=== PATIENT | female | born 1970 | race Hispanic/Latino ===

== ENCOUNTER 2021-12-29 14:33 | Inpatient (IN) | payer OTHER ==
[~2021-12-29] VITALS: Ht 167.6 cm; Wt 68.0 kg
[2021-12-29] MEDS ORDERED: ACETAMINOPHEN 500 MG TABLET PO ONE (15:30)
[2021-12-29] MEDS ORDERED: NIFEDIPINE 10 MG CAP PO ONE (15:30)
[2021-12-29 16:08] LABS: BASOPHILS % (AUTO) 0.5 % (0.0-5.0); EOSINOPHILS % (AUTO) 1.4 % (0.0-8.0); HEMATOCRIT 29.6 % (36-48); LYMPHOCYTES % (AUTO) 13.8 % (21.0-51.0); MEAN CORPUSCULAR HEMOGLOBIN 29.2 pg (27.0-33.0); MEAN CORPUSCULAR HGB CONC 32.1 g/dL (32.0-36.0); MEAN CORPUSCULAR VOLUME 91.1 fL (79-99); MONOCYTES % (AUTO) 10.2 % (3.0-13.0); NEUTROPHILS % (AUTO) 73.9 % (40.0-77.0); PLATELET COUNT (AUTO) 278 K/uL (130-400); RED BLOOD CELL COUNT(AUTO) 3.25 MIL/uL (4.00-5.50); RED CELL DISTRIBUTION WIDTH 15.8 % (11.0-15.5); WHITE BLOOD COUNT (AUTO) 6.6 K/uL (4.8-10.8)
[2021-12-29 16:21] LABS: INR 0.94 (0.85-1.15); PROTHROMBIN TIME 10.3 SEC (9.6-11.6)
[2021-12-29 16:23] LABS: CREATININE 0.6 mg/dL (0.5-1.5); POTASSIUM 3.3 mmol/L (3.5-5.1)
[2021-12-29 16:30] LABS: ALBUMIN 2.6 g/dL (3.5-5.0); TOTAL PROTEIN, SERUM 5.9 g/dL (6.0-8.3)
[2021-12-29] MEDS ORDERED: ACETAMINOPHEN 325 MG TAB PO PRN (16:30)
[2021-12-29] MEDS ORDERED: ONDANSETRON 4MG INJ IV PRN (16:30)
[2021-12-29] MEDS ORDERED: POTASSIUM BICARB/CIT AC 25 MEQ TABLET.EFF PO ONE (16:30)
[2021-12-29 16:47] LABS: HEMOGLOBIN A1C 5.6 % (4.0-6.0)
[2021-12-29 17:02] LABS: MAGNESIUM 1.5 mg/dL (1.80-2.40); PHOSPHORUS 3.1 mg/dL (2.5-4.9)
[2021-12-29] MEDS ORDERED: FISH1CAP50 PO (17:40)
[2021-12-29] MEDS ORDERED: OLAN10TA73 PO (17:41)
[2021-12-29] MEDS ORDERED: CHOL100053 PO (17:43)
[2021-12-29] MEDS ORDERED: [UNRECOGNIZED DRUG - CODE] PO (17:47)
[2021-12-29] MEDS ORDERED: ACET325T51 PO (17:51)
[2021-12-29] MEDS ORDERED: QUET100T34 PO (18:02)
[2021-12-29] MEDS ORDERED: MAAL30 PO (18:02)
[2021-12-29] MEDS ORDERED: ONDA-104 PO (18:02)
[2021-12-29] MEDS ORDERED: LOPE2CAP PO (18:06)
[2021-12-29] MEDS ORDERED: LORA-192 PO (18:06)
[2021-12-29] MEDS: 0.9%NACL 1000ML 1,000 ML IV SCH (18:24)
[2021-12-29] MEDS: BISACODYL 5 MG TABLET.DR PO SCH (19:52)
[2021-12-29] MEDS: METOPROLOL TARTRATE 25 MG TAB PO SCH (19:52)
[2021-12-29 20:36] LABS: APPEARANCE,URINE CLEAR (CLEAR); BILIRUBIN,URINE NEGATIVE (NEGATIVE); COLOR,URINE YELLOW (YELLOW); GLUCOSE, URINE (UA) NEGATIVE (NEGATIVE); KETONES,URINE NEGATIVE (NEGATIVE); LEUKOCYTE ESTERASE ,URINE NEGATIVE (NEGATIVE); NITRATE,URINE NEGATIVE (NEGATIVE); OCCULT BLOOD,URINE NEGATIVE (NEGATIVE); PROTEIN,URINE TRACE mg/dL (NEGATIVE); UROBILINOGEN,URINE 0.2 mg/dL (0.2-1.0)
[2021-12-29 20:54] LABS: BACTERIA,URINE Rare /HPF (None Seen); MUCUS,URINE Few LPF (None Seen); SQUAMOUS EPITHELIAL CELL,UR Few /HPF (0-2)
[2021-12-29] MEDS: HYDROMORPHONE 0.5 MG SYG (0.5MG/0.5ML) IVP PRN (22:55)
[2021-12-30] VITALS (7 sets, daily range): BP systolic 117–156; BP diastolic 88–99
[2021-12-30] MEDS: HYDROMORPHONE 1 MG INJ IVP PRN ×2 (01:09→21:01)
[2021-12-30] MEDS ORDERED: LORAZEPAM 2 MG/ML 1 ML VIAL IVP ONE (01:30)
[2021-12-30] MEDS: 0.9%NACL 1000ML 1,000 ML IV SCH (02:30)
[2021-12-30 06:35] LABS: BASOPHILS % (AUTO) 0.6 % (0.0-5.0); EOSINOPHILS % (AUTO) 3.3 % (0.0-8.0); HEMATOCRIT 28.2 % (36-48); LYMPHOCYTES % (AUTO) 32.2 % (21.0-51.0); MEAN CORPUSCULAR HEMOGLOBIN 28.9 pg (27.0-33.0); MEAN CORPUSCULAR HGB CONC 31.9 g/dL (32.0-36.0); MEAN CORPUSCULAR VOLUME 90.7 fL (79-99); MONOCYTES % (AUTO) 11.1 % (3.0-13.0); NEUTROPHILS % (AUTO) 52.6 % (40.0-77.0); PLATELET COUNT (AUTO) 246 K/uL (130-400); RED BLOOD CELL COUNT(AUTO) 3.11 MIL/uL (4.00-5.50); RED CELL DISTRIBUTION WIDTH 15.9 % (11.0-15.5); WHITE BLOOD COUNT (AUTO) 4.9 K/uL (4.8-10.8)
[2021-12-30 06:43] LABS: CREATININE 0.5 mg/dL (0.5-1.5); POTASSIUM 3.3 mmol/L (3.5-5.1)
[2021-12-30] MEDS ORDERED: POTASSIUM CHLORIDE 10% ELIXIR 20 MEQ/15 ML UDCUP PO PRN (08:30)
[2021-12-30] MEDS ORDERED: LIDOCAINE HCL-MPF 1% 2ML VIAL IV PRN (08:30)
[2021-12-30] MEDS ORDERED: POTASSIUM CHLORIDE 20MEQ/100ML 100 ML IV PRN (08:30)
[2021-12-30] MEDS: HYDROMORPHONE 0.5 MG SYG (0.5MG/0.5ML) IM PRN ×2 (10:20→15:10)
[2021-12-30] MEDS: METOPROLOL TARTRATE 25 MG TAB PO SCH (10:21)
[2021-12-30] MEDS: BISACODYL 5 MG TABLET.DR PO SCH ×2 (10:21→21:00)
[2021-12-30] MEDS: FAMOTIDINE 20MG TAB PO SCH ×2 (10:21→21:00)
[2021-12-30] MEDS: QUETIAPINE FUMARATE 100 MG TAB PO SCH ×3 (10:21→21:00)
[2021-12-30] MEDS: KCL 20 MEQ ERTAB PO PRN ×2 (15:07→17:46)
[2021-12-30] MEDS: MAGNESIUM 2GM PREMIX 50ML 50 ML IV PRN (15:08)
[2021-12-30] MEDS ORDERED: LORAZEPAM 2 MG/ML 1 ML VIAL IVP PRN (16:00)
[2021-12-30] MEDS: OLANZAPINE 5 MG TAB PO SCH (16:31)
[2021-12-30] MEDS: METOPROLOL TARTRATE 50 MG TAB PO SCH (21:00)
[2021-12-30] MEDS ORDERED: ALPRAZOLAM 0.5 MG TABLET PO SCH (22:00)
[2021-12-31] MEDS: KCL 20 MEQ ERTAB PO PRN (00:18)
[2021-12-31] MEDS: HYDROMORPHONE 0.5 MG SYG (0.5MG/0.5ML) IM PRN ×4 (00:18→21:48)
[2021-12-31] MEDS: HYDROMORPHONE 1 MG INJ IVP PRN (04:33)
[2021-12-31 04:47] VITALS: BP 118/84
[2021-12-31 05:06] LABS: BASOPHILS % (AUTO) 0.5 % (0.0-5.0); EOSINOPHILS % (AUTO) 3.9 % (0.0-8.0); HEMATOCRIT 26.6 % (36-48); LYMPHOCYTES % (AUTO) 29.6 % (21.0-51.0); MEAN CORPUSCULAR HEMOGLOBIN 28.9 pg (27.0-33.0); MEAN CORPUSCULAR HGB CONC 31.6 g/dL (32.0-36.0); MEAN CORPUSCULAR VOLUME 91.4 fL (79-99); MONOCYTES % (AUTO) 11.8 % (3.0-13.0); PLATELET COUNT (AUTO) 241 K/uL (130-400); RED BLOOD CELL COUNT(AUTO) 2.91 MIL/uL (4.00-5.50); RED CELL DISTRIBUTION WIDTH 15.9 % (11.0-15.5); WHITE BLOOD COUNT (AUTO) 4.1 K/uL (4.8-10.8)
[2021-12-31 05:43] LABS: % IRON SATURATION 7.6 % (22-44)
[2021-12-31 05:45] LABS: CREATININE 0.6 mg/dL (0.5-1.5); MAGNESIUM 1.7 mg/dL (1.80-2.40); POTASSIUM 4.8 mmol/L (3.5-5.1); THYROID STIMULATING HORMONE 0.89 uIU/mL (0.36-3.74)
[2021-12-31] MEDS: MAGNESIUM 2GM PREMIX 50ML 50 ML IV PRN (06:00)
[2021-12-31 08:00] VITALS: BP 125/77
[2021-12-31] MEDS: BISACODYL 5 MG TABLET.DR PO SCH ×2 (08:00→21:00)
[2021-12-31] MEDS: METOPROLOL TARTRATE 50 MG TAB PO SCH ×2 (09:14→21:31)
[2021-12-31] MEDS: FAMOTIDINE 20MG TAB PO SCH ×2 (09:14→21:31)
[2021-12-31] MEDS: QUETIAPINE FUMARATE 100 MG TAB PO SCH ×3 (09:14→21:31)
[2021-12-31 12:00] VITALS: BP 151/90
[2021-12-31] MEDS ORDERED: DiphenhydrAMINE HCL 50 MG/ML VIAL ONE (15:52)
[2021-12-31] MEDS ORDERED: HALOPERIDOL INJ 5 MG/ML VIAL ONE (15:52)
[2021-12-31 16:00] VITALS: BP 115/75
[2021-12-31] MEDS: OLANZAPINE 5 MG TAB PO SCH (16:31)
[2021-12-31] MEDS ORDERED: HALOPERIDOL INJ 5 MG/ML VIAL IM ONE (17:00)
[2021-12-31] MEDS ORDERED: DiphenhydrAMINE HCL 50 MG/ML VIAL IV ONE (17:00)
[2021-12-31 20:00] VITALS: BP 124/68
[2022-01-01] VITALS (7 sets, daily range): BP systolic 107–149; BP diastolic 68–88
[2022-01-01 05:10] LABS: EOSINOPHILS % (AUTO) 4.4 % (0.0-8.0); HEMATOCRIT 28.4 % (36-48); LYMPHOCYTES % (AUTO) 30.2 % (21.0-51.0); MEAN CORPUSCULAR VOLUME 90.4 fL (79-99); MONOCYTES % (AUTO) 12.4 % (3.0-13.0); PLATELET COUNT (AUTO) 278 K/uL (130-400); RED BLOOD CELL COUNT(AUTO) 3.14 MIL/uL (4.00-5.50); RED CELL DISTRIBUTION WIDTH 15.6 % (11.0-15.5); WHITE BLOOD COUNT (AUTO) 3.9 K/uL (4.8-10.8)
[2022-01-01 05:30] LABS: CREATININE 0.7 mg/dL (0.5-1.5); POTASSIUM 4.3 mmol/L (3.5-5.1)
[2022-01-01] MEDS: HYDROMORPHONE 0.5 MG SYG (0.5MG/0.5ML) IVP PRN ×2 (05:51→19:49)
[2022-01-01] MEDS: BISACODYL 5 MG TABLET.DR PO SCH ×2 (07:21→22:10)
[2022-01-01 10:33] LABS: ALBUMIN 2.6 g/dL (3.5-5.0); TOTAL PROTEIN, SERUM 6.1 g/dL (6.0-8.3)
[2022-01-01] MEDS: FAMOTIDINE 20MG TAB PO SCH ×2 (12:23→22:10)
[2022-01-01] MEDS: METOPROLOL TARTRATE 50 MG TAB PO SCH ×2 (12:23→22:10)
[2022-01-01] MEDS: QUETIAPINE FUMARATE 100 MG TAB PO SCH ×3 (12:23→22:09)
[2022-01-01] MEDS: OLANZAPINE 5 MG TAB PO SCH (16:50)
[2022-01-01] MEDS: CLONAZEPAM 2 MG TABLET PO PRN (16:50)
[2022-01-01] MEDS: ACETAMINOPHEN 325 MG TAB PO PRN (23:40)
[2022-01-02 04:00] VITALS: BP_SYST 103; BP_SYST 129; BP_DIAS 68; BP_DIAS 80
[2022-01-02 05:19] LABS: HEMATOCRIT 29.4 % (36-48); MEAN CORPUSCULAR HGB CONC 32.3 g/dL (32.0-36.0); MEAN CORPUSCULAR VOLUME 89.6 fL (79-99); RED BLOOD CELL COUNT(AUTO) 3.28 MIL/uL (4.00-5.50); RED CELL DISTRIBUTION WIDTH 15.3 % (11.0-15.5); WHITE BLOOD COUNT (AUTO) 4.6 K/uL (4.8-10.8)
[2022-01-02 05:32] LABS: CREATININE 0.7 mg/dL (0.5-1.5); POTASSIUM 4.1 mmol/L (3.5-5.1)
[2022-01-02] MEDS: QUETIAPINE FUMARATE 100 MG TAB PO SCH ×3 (08:50→21:02)
[2022-01-02] MEDS: BISACODYL 5 MG TABLET.DR PO SCH ×2 (08:50→21:02)
[2022-01-02] MEDS: METOPROLOL TARTRATE 50 MG TAB PO SCH ×2 (08:50→21:02)
[2022-01-02] MEDS: FAMOTIDINE 20MG TAB PO SCH ×2 (08:50→21:02)
[2022-01-02 08:53] VITALS: BP 126/79
[2022-01-02] MEDS: HYDROMORPHONE 0.5 MG SYG (0.5MG/0.5ML) IVP PRN ×2 (08:55→14:34)
[2022-01-02 12:23] VITALS: BP 112/77
[2022-01-02 17:26] VITALS: BP 99/69
[2022-01-02] MEDS: OLANZAPINE 5 MG TAB PO SCH (17:48)
[2022-01-02 19:38] VITALS: BP 102/65
[2022-01-02] MEDS: CLONAZEPAM 2 MG TABLET PO PRN (21:02)
[2022-01-02] MEDS: HYDROMORPHONE 0.5 MG SYG (0.5MG/0.5ML) IM PRN (21:06)
[2022-01-03] MEDS: HYDROMORPHONE 0.5 MG SYG (0.5MG/0.5ML) IM PRN (00:52)
[2022-01-03 03:59] VITALS: BP 100/65
[2022-01-03 07:05] VITALS: BP 103/78
[2022-01-03] MEDS: METOPROLOL TARTRATE 50 MG TAB PO SCH ×2 (08:29→20:28)
[2022-01-03] MEDS: HYDROMORPHONE 0.5 MG SYG (0.5MG/0.5ML) IVP PRN ×2 (08:29→14:33)
[2022-01-03] MEDS: OLANZAPINE 5 MG TAB PO SCH ×2 (08:29→12:06)
[2022-01-03] MEDS: BISACODYL 5 MG TABLET.DR PO SCH ×2 (08:36→20:28)
[2022-01-03] MEDS: FAMOTIDINE 20MG TAB PO SCH ×2 (08:37→20:28)
[2022-01-03] MEDS ORDERED: IRON SUCROSE COMPLEX 500 MG in 0.9% NACL 250ML 250 ML IV SCH (11:30)
[2022-01-03 12:02] VITALS: BP 118/76
[2022-01-03] MEDS: CLONAZEPAM 2 MG TABLET PO PRN ×2 (12:06→20:28)
[2022-01-03] MEDS: EPOETIN ALFA-EPBX (NON-ESRD) 10,000 UNIT/ML VIAL SQ SCH (12:33)
[2022-01-03 16:08] VITALS: BP 120/82
[2022-01-03 20:00] VITALS: BP 109/69
[2022-01-03] MEDS: QUETIAPINE FUMARATE 100 MG TAB PO SCH (20:28)
[2022-01-03] MEDS: HYDROMORPHONE 1 MG INJ IVP PRN (21:26)
[2022-01-04] VITALS (27 sets, daily range): BP systolic 106–150; BP diastolic 62–97
[2022-01-04] MEDS: OLANZAPINE 5 MG TAB PO SCH ×2 (08:35→12:00)
[2022-01-04] MEDS: BISACODYL 5 MG TABLET.DR PO SCH ×2 (08:36→20:27)
[2022-01-04] MEDS: METOPROLOL TARTRATE 50 MG TAB PO SCH ×2 (08:36→20:27)
[2022-01-04] MEDS: FAMOTIDINE 20MG TAB PO SCH ×2 (08:36→20:27)
[2022-01-04] MEDS: HYDROMORPHONE 1 MG INJ IVP PRN ×2 (08:39→18:57)
[2022-01-04 08:45] LABS: BASOPHILS % (AUTO) 0.4 % (0.0-5.0); EOSINOPHILS % (AUTO) 4.2 % (0.0-8.0); HEMATOCRIT 30.2 % (36-48); LYMPHOCYTES % (AUTO) 20.1 % (21.0-51.0); MEAN CORPUSCULAR HEMOGLOBIN 29.4 pg (27.0-33.0); MEAN CORPUSCULAR HGB CONC 32.8 g/dL (32.0-36.0); MEAN CORPUSCULAR VOLUME 89.6 fL (79-99); MONOCYTES % (AUTO) 12.1 % (3.0-13.0); NEUTROPHILS % (AUTO) 62.8 % (40.0-77.0); PLATELET COUNT (AUTO) 263 K/uL (130-400); RED BLOOD CELL COUNT(AUTO) 3.37 MIL/uL (4.00-5.50); RED CELL DISTRIBUTION WIDTH 15.2 % (11.0-15.5); WHITE BLOOD COUNT (AUTO) 4.7 K/uL (4.8-10.8)
[2022-01-04 09:18] LABS: ALBUMIN 2.7 g/dL (3.5-5.0); CREATININE 0.7 mg/dL (0.5-1.5); POTASSIUM 3.9 mmol/L (3.5-5.1); TOTAL PROTEIN, SERUM 6.2 g/dL (6.0-8.3)
[2022-01-04] MEDS: EPOETIN ALFA-EPBX (NON-ESRD) 10,000 UNIT/ML VIAL SQ SCH (11:30)
[2022-01-04] MEDS ORDERED: ROCURONIUM 10MG/1ML SYR 10 MG/ML ML ONE (13:10)
[2022-01-04] MEDS ORDERED: GLYCOPYRROLATE 1 MG/5 ML SYRINGE ONE (13:10)
[2022-01-04] MEDS ORDERED: MIDAZOLAM HCL 1 MG/ML 2ML VIAL ONE (13:10)
[2022-01-04] MEDS ORDERED: PROPOFOL 10 MG/ML 20ML VIAL IV ONE (13:10)
[2022-01-04] MEDS ORDERED: FENTANYL CITRATE PF 50 MCG/1 ML 2ML VIAL ONE (13:11)
[2022-01-04] MEDS ORDERED: FAMOTIDINE 20MG VIAL IV ONE (13:57)
[2022-01-04] MEDS ORDERED: ONDANSETRON 4MG INJ ONE (14:04)
[2022-01-04] MEDS ORDERED: NEOSTIGMINE 5MG/5ML SYR IV ONE (15:06)
[2022-01-04] MEDS ORDERED: HYDROMORPHONE 1 MG INJ ONE (15:36)
[2022-01-04] MEDS: QUETIAPINE FUMARATE 100 MG TAB PO SCH (20:27)
[2022-01-04] MEDS: CLONAZEPAM 2 MG TABLET PO PRN (20:30)
[2022-01-05] MEDS: HYDROMORPHONE 0.5 MG SYG (0.5MG/0.5ML) IVP PRN ×3 (02:14→08:48)
[2022-01-05 04:00] VITALS: BP 118/68
[2022-01-05 05:55] LABS: BASOPHILS % (AUTO) 0.4 % (0.0-5.0); EOSINOPHILS % (AUTO) 0.7 % (0.0-8.0); HEMATOCRIT 26.8 % (36-48); LYMPHOCYTES % (AUTO) 10.9 % (21.0-51.0); MEAN CORPUSCULAR HEMOGLOBIN 29.2 pg (27.0-33.0); MEAN CORPUSCULAR HGB CONC 31.7 g/dL (32.0-36.0); MEAN CORPUSCULAR VOLUME 92.1 fL (79-99); MONOCYTES % (AUTO) 12.5 % (3.0-13.0); NEUTROPHILS % (AUTO) 75.1 % (40.0-77.0); PLATELET COUNT (AUTO) 265 K/uL (130-400); RED BLOOD CELL COUNT(AUTO) 2.91 MIL/uL (4.00-5.50); RED CELL DISTRIBUTION WIDTH 15.5 % (11.0-15.5); WHITE BLOOD COUNT (AUTO) 7.1 K/uL (4.8-10.8)
[2022-01-05 06:26] LABS: ALBUMIN 2.6 g/dL (3.5-5.0); CREATININE 0.7 mg/dL (0.5-1.5); POTASSIUM 3.8 mmol/L (3.5-5.1); TOTAL PROTEIN, SERUM 5.9 g/dL (6.0-8.3)
[2022-01-05] MEDS ORDERED: CEFAZOLIN SODIUM 1 GM VIAL ONE (06:39)
[2022-01-05] MEDS: CEFAZOLIN SODIUM 1 GM VIAL IVP SCH ×3 (06:46→22:11)
[2022-01-05 08:00] VITALS: BP 111/79
[2022-01-05] MEDS: METOPROLOL TARTRATE 50 MG TAB PO SCH ×2 (08:24→20:35)
[2022-01-05] MEDS: OLANZAPINE 5 MG TAB PO SCH ×2 (08:24→14:30)
[2022-01-05] MEDS: FAMOTIDINE 20MG TAB PO SCH ×2 (08:24→20:35)
[2022-01-05] MEDS: BISACODYL 5 MG TABLET.DR PO SCH ×2 (08:24→20:35)
[2022-01-05] MEDS: CLONAZEPAM 2 MG TABLET PO PRN ×2 (08:25→20:35)
[2022-01-05] MEDS: EPOETIN ALFA-EPBX (NON-ESRD) 10,000 UNIT/ML VIAL SQ SCH (11:30)
[2022-01-05 12:00] VITALS: BP 127/81
[2022-01-05 16:00] VITALS: BP 125/82
[2022-01-05 20:00] VITALS: BP 123/82
[2022-01-05] MEDS: QUETIAPINE FUMARATE 100 MG TAB PO SCH (20:35)
[2022-01-06] MEDS ORDERED: 0.9% NACL 500ML IV.SOLN 500 ML IV SCH ×2
[2022-01-06 04:00] VITALS: BP 118/77
[2022-01-06 04:34] LABS: BASOPHILS % (AUTO) 0.3 % (0.0-5.0); EOSINOPHILS % (AUTO) 0.8 % (0.0-8.0); HEMATOCRIT 24.5 % (36-48); LYMPHOCYTES % (AUTO) 18.3 % (21.0-51.0); MEAN CORPUSCULAR HEMOGLOBIN 28.8 pg (27.0-33.0); MEAN CORPUSCULAR HGB CONC 31.8 g/dL (32.0-36.0); MEAN CORPUSCULAR VOLUME 90.4 fL (79-99); MONOCYTES % (AUTO) 16.9 % (3.0-13.0); NEUTROPHILS % (AUTO) 63.4 % (40.0-77.0); PLATELET COUNT (AUTO) 247 K/uL (130-400); RED BLOOD CELL COUNT(AUTO) 2.71 MIL/uL (4.00-5.50); WHITE BLOOD COUNT (AUTO) 6.3 K/uL (4.8-10.8)
[2022-01-06 04:56] LABS: CREATININE 0.6 mg/dL (0.5-1.5); POTASSIUM 3.7 mmol/L (3.5-5.1)
[2022-01-06] MEDS: HYDROMORPHONE 0.5 MG SYG (0.5MG/0.5ML) IVP PRN (06:59)
[2022-01-06] MEDS: CEFAZOLIN SODIUM 1 GM VIAL IVP SCH ×3 (07:00→22:52)
[2022-01-06 08:00] VITALS: BP 110/73
[2022-01-06] MEDS: OLANZAPINE 5 MG TAB PO SCH ×4 (08:54→19:35)
[2022-01-06] MEDS: IRON SUCROSE COMPLEX 100 MG/5 ML VIAL IVP SCH (08:54)
[2022-01-06] MEDS: BISACODYL 5 MG TABLET.DR PO SCH ×2 (08:54→19:35)
[2022-01-06] MEDS: FAMOTIDINE 20MG TAB PO SCH ×2 (08:54→19:36)
[2022-01-06] MEDS: METOPROLOL TARTRATE 50 MG TAB PO SCH ×2 (08:54→19:35)
[2022-01-06] MEDS: ACETAMINOPHEN 325 MG TAB PO PRN (08:57)
[2022-01-06] MEDS ORDERED: IRON SUCROSE COMPLEX 100 MG in 0.9%NACL 50ML 50 ML IV SCH (09:00)
[2022-01-06] MEDS ORDERED: ACETAMINOPHEN WITH CODEINE 1 TAB TAB PO PRN (11:00)
[2022-01-06 12:00] VITALS: BP 91/60
[2022-01-06] MEDS: CLONAZEPAM 2 MG TABLET PO PRN (12:05)
[2022-01-06] MEDS ORDERED: OLANZAPINE 5 MG TAB PO ONE (13:30)
[2022-01-06 16:00] VITALS: BP 133/80
[2022-01-06] MEDS: ACETAMINOPHEN WITH CODEINE 1 TAB TAB PO PRN ×2 (18:56→22:53)
[2022-01-06] MEDS: QUETIAPINE FUMARATE 100 MG TAB PO SCH (19:35)
[2022-01-06 20:48] VITALS: BP 120/69
[2022-01-07] VITALS: BP 102/69
[2022-01-07 04:29] VITALS: BP 116/64
[2022-01-07 07:57] VITALS: BP 104/70
[2022-01-07 08:36] LABS: HEMATOCRIT 24.5 % (36-48); MEAN CORPUSCULAR HEMOGLOBIN 29.3 pg (27.0-33.0); MEAN CORPUSCULAR HGB CONC 31.8 g/dL (32.0-36.0); MEAN CORPUSCULAR VOLUME 92.1 fL (79-99); RED BLOOD CELL COUNT(AUTO) 2.66 MIL/uL (4.00-5.50); RED CELL DISTRIBUTION WIDTH 15.7 % (11.0-15.5); WHITE BLOOD COUNT (AUTO) 4.7 K/uL (4.8-10.8)
[2022-01-07] MEDS: FAMOTIDINE 20MG TAB PO SCH ×2 (08:42→21:04)
[2022-01-07] MEDS: IRON SUCROSE COMPLEX 100 MG/5 ML VIAL IVP SCH (08:42)
[2022-01-07] MEDS: METOPROLOL TARTRATE 50 MG TAB PO SCH ×2 (08:42→21:04)
[2022-01-07] MEDS: BISACODYL 5 MG TABLET.DR PO SCH ×2 (08:42→21:03)
[2022-01-07] MEDS: OLANZAPINE 5 MG TAB PO SCH ×3 (08:42→21:03)
[2022-01-07] MEDS: CEFAZOLIN SODIUM 1 GM VIAL IVP SCH ×3 (08:46→22:22)
[2022-01-07 08:48] LABS: CREATININE 0.7 mg/dL (0.5-1.5); POTASSIUM 3.6 mmol/L (3.5-5.1)
[2022-01-07 11:02] VITALS: BP 114/75
[2022-01-07] MEDS: ACETAMINOPHEN WITH CODEINE 1 TAB TAB PO PRN ×2 (12:53→23:06)
[2022-01-07 16:06] VITALS: BP 104/48
[2022-01-07] MEDS: KCL 20 MEQ ERTAB PO PRN (17:41)
[2022-01-07 20:00] VITALS: BP 120/76
[2022-01-07] MEDS: QUETIAPINE FUMARATE 100 MG TAB PO SCH (21:04)
[2022-01-07] MEDS: CLONAZEPAM 2 MG TABLET PO PRN (23:07)
[2022-01-07 23:54] LABS: AMPHET/METH SCREEN,URINE NEGATIVE (NEGATIVE); BARBITURATE SCREEN, URINE NEGATIVE (NEGATIVE); BENZODIAZEPINES SCREEN,URINE NEGATIVE (NEGATIVE); CANNABINOID SCREEN,URINE NEGATIVE (NEGATIVE); COCAINE SCREEN,URINE NEGATIVE (NEGATIVE); PHENCYCLIDINE SCREEN,URINE NEGATIVE (NEGATIVE)
[2022-01-08] VITALS: BP 116/72
[2022-01-08] MEDS: ACETAMINOPHEN WITH CODEINE 1 TAB TAB PO PRN ×3 (03:51→16:39)
[2022-01-08 04:00] VITALS: BP 108/73
[2022-01-08 05:43] LABS: HEMATOCRIT 24.2 % (36-48); MEAN CORPUSCULAR HEMOGLOBIN 29.2 pg (27.0-33.0); MEAN CORPUSCULAR HGB CONC 31.8 g/dL (32.0-36.0); MEAN CORPUSCULAR VOLUME 91.7 fL (79-99); RED BLOOD CELL COUNT(AUTO) 2.64 MIL/uL (4.00-5.50); RED CELL DISTRIBUTION WIDTH 15.7 % (11.0-15.5); WHITE BLOOD COUNT (AUTO) 4.4 K/uL (4.8-10.8)
[2022-01-08 06:03] LABS: CREATININE 0.7 mg/dL (0.5-1.5); POTASSIUM 4.2 mmol/L (3.5-5.1)
[2022-01-08 08:00] VITALS: BP 113/83
[2022-01-08] MEDS: CEFAZOLIN SODIUM 1 GM VIAL IVP SCH (08:09)
[2022-01-08] MEDS: FAMOTIDINE 20MG TAB PO SCH (08:10)
[2022-01-08] MEDS: METOPROLOL TARTRATE 50 MG TAB PO SCH (08:10)
[2022-01-08] MEDS: OLANZAPINE 5 MG TAB PO SCH ×2 (08:14→16:38)
[2022-01-08] MEDS: IRON SUCROSE COMPLEX 100 MG/5 ML VIAL IVP SCH (08:14)
[2022-01-08] MEDS: BISACODYL 5 MG TABLET.DR PO SCH (09:00)
[2022-01-08 11:39] VITALS: BP 118/77
[2022-01-08] MEDS: CLONAZEPAM 2 MG TABLET PO PRN (13:13)
[2022-01-08 16:00] VITALS: BP 128/84
[2022-01-10 13:12] LABS: OPIATES SCREEN URINE Positive ng/mL (Cutoff=300)
== END 2022-01-08 18:33 | DRG 493 ==
LOC: EDH 14:33 → EDHIP 14:34 → 4CH 12-30 02:28 → 4BH 01-06 17:03
PROVIDERS: ADMIT Hospitalist; ATTEND Hospitalist
PROC: 0PSD04Z Reposition Left Humeral Head with Internal Fixation Device, Open Approach (ICD-10-PCS; principal; 2022-01-04 13:16)
DX: S42.202A Unspecified fracture of upper end of left humerus, initial encounter for closed fracture (principal); F31.2 Bipolar disorder, current episode manic severe with psychotic features; F63.81 Intermittent explosive disorder; D50.9 Iron deficiency anemia, unspecified; Z20.822 Contact with and (suspected) exposure to COVID-19; W18.39XA Other fall on same level, initial encounter; Y93.89 Activity, other specified; Y92.89 Other specified places as the place of occurrence of the external cause; Y99.8 Other external cause status
CPT/HCPCS: 36415; 71045; 73030; 73060; 80048; 80053; 80305; 81001; 82140; 82607; 82728; 82746; 83036; 83540; 83550; 83735; 84100; 84443; 84484; 84703; 85025; 85027; 85045; 85610; 85730; 86850; 86900; 86901; 87635; 93005; 97039; C9803; G0378; J0690; J1170; J1200; J1630; J1756; J2060; J2250; J2405; J2704; J2710; J3010; J3475; J3490; J7030; J7050